=== PATIENT | male | born 1955 | race Caucasian/White ===

== ENCOUNTER 2017-07-16 20:05 | Emergency (ER) | payer OTHER ==
[~2017-07-16] VITALS: Ht 180.3 cm; Wt 158.8 kg
[~2017-07-16 20:05] MED LIST: MOTRIN800 MG PO
[2017-07-16 20:26] LABS: BASO # 0.1 10*3/uL (0.0-0.1); BASO % 0.3 % (0.0-1.0); EOS % 0.2 % (1.0-4.0); HEMATOCRIT 50.6 % (42.0-52.0); HEMOGLOBIN 16.9 g/dl (14.0-18.0); LYMPH # 1.9 10*3/uL (1.3-4.4); LYMPH % 11.6 % (27.0-41.0); MEAN CELL VOLUME 88.3 fl (80.0-94.0); MEAN CORPUSCULAR HGB 29.5 pg (27.0-31.0); MEAN CORPUSCULAR HGB CONC 33.4 g/dl (33.0-37.0); MEAN PLATELET VOLUME 10.9 fl (9.6-12.3); MONO # 0.7 10*3/uL (0.1-1.0); MONO % 4.3 % (3.0-9.0); NEUT # 13.7 10*3/uL (2.3-7.9); NEUT % 83.2 % (47.0-73.0); PLATELET COUNT AUTOMATED 217 10*3/uL (130-400); RED BLOOD COUNT 5.73 10*6/uL (4.50-5.90); RED CELL DISTRI WIDTH 13.7 % (0-14.5); WHITE BLOOD COUNT 16.4 10*3/uL (4.8-10.8)
[2017-07-16 20:36] LABS: ACT PARTIAL THROMBO TIME 21.5 SECONDS (20.8-31.5); INTERNATIONAL NORM RATIO 0.9 (2.0-3.5)
[2017-07-16 20:42] LABS: ALBUMIN 3.5 gm/dl (3.1-4.5); ALKALINE PHOSPHATASE 105 U/L (45-117); BUN 24 mg/dl (7-24); CHLORIDE 102 mmol/L (98-107); CREATININE 1.33 mg/dL (0.70-1.30); POTASSIUM 4.5 mmol/L (3.5-5.1); SGOT/AST 446 IU/L (3-35); SGPT/ALT 44 U/L (12-78); SODIUM 137 mmol/L (136-145)
== END 2017-07-16 20:50 | disposition short-term general hospital (02) ==
LOC: ED 20:05
PROVIDERS: Emergency Medicine Emergency Medical Services
DX: I21.29 ST elevation (STEMI) myocardial infarction involving other sites (principal); F17.200 Nicotine dependence, unspecified, uncomplicated; Z98.890 Other specified postprocedural states; Z88.2 Allergy status to sulfonamides

== ENCOUNTER → 2017-11-23 | Outpatient (CLI) | payer OTHER ==
[2017-11-23 12:23] LABS: BASO # 0.1 10*3/uL (0.0-0.1); EOS # 0.3 10*3/uL (0.0-0.4); EOS % 2.8 % (1.0-4.0); HEMATOCRIT 48.6 % (42.0-52.0); HEMOGLOBIN 15.8 g/dl (14.0-18.0); LYMPH % 28.9 % (27.0-41.0); MEAN CELL VOLUME 91.2 fl (80.0-94.0); MEAN CORPUSCULAR HGB 29.6 pg (27.0-31.0); MEAN CORPUSCULAR HGB CONC 32.5 g/dl (33.0-37.0); MEAN PLATELET VOLUME 10.8 fl (9.6-12.3); MONO # 0.6 10*3/uL (0.1-1.0); MONO % 5.4 % (3.0-9.0); NEUT # 6.4 10*3/uL (2.3-7.9); NEUT % 61.4 % (47.0-73.0); PLATELET COUNT AUTOMATED 250 10*3/uL (130-400); RED BLOOD COUNT 5.33 10*6/uL (4.50-5.90); RED CELL DISTRI WIDTH 13.1 % (0-14.5); WHITE BLOOD COUNT 10.4 10*3/uL (4.8-10.8)
[2017-11-23 12:47] LABS: BUN 13 mg/dl (7-24); CHLORIDE 104 mmol/L (98-107); CHOLESTEROL 126 mg/dL (<200); CREATININE 1.09 mg/dL (0.70-1.30); POTASSIUM 3.8 mmol/L (3.5-5.1); SODIUM 141 mmol/L (136-145); TRIGLYCERIDES 156 mg/dl (<150); VLDL CHOLESTEROL 31 mg/dL (6-40)
[2017-11-23 12:57] LABS: HDL CHOLESTEROL 45 mg/dl (40-60); LDL CHOLESTEROL 50 mg/dL (9-159)
== END | disposition home or self-care (01) ==
LOC: LAB 11:38
PROVIDERS: Internal Medicine
DX: I10 Essential (primary) hypertension (principal); I25.2 Old myocardial infarction; E78.00 Pure hypercholesterolemia, unspecified; E66.01 Morbid (severe) obesity due to excess calories; Z95.0 Presence of cardiac pacemaker; Z79.899 Other long term (current) drug therapy

== ENCOUNTER → 2017-11-24 | Outpatient (CLI) | payer OTHER | END | disposition home or self-care (01) | LOC: RESCLI 04:40 | DX: I10 Essential (primary) hypertension (principal); E11.65 Type 2 diabetes mellitus with hyperglycemia; E78.1 Pure hyperglyceridemia; I25.10 Atherosclerotic heart disease of native coronary artery without angina pectoris; E66.01 Morbid (severe) obesity due to excess calories; M54.42 Lumbago with sciatica, left side; G89.29 Other chronic pain; Z79.899 Other long term (current) drug therapy; Z79.82 Long term (current) use of aspirin; Z88.2 Allergy status to sulfonamides; Z68.42 Body mass index [BMI] 45.0-49.9, adult ==

== ENCOUNTER → 2018-03-02 | Outpatient (CLI) | payer OTHER ==
[2018-03-02 11:06] LABS: ALBUMIN 3.3 gm/dl (3.1-4.5); BUN 15 mg/dl (7-24); CHLORIDE 103 mmol/L (98-107); CHOLESTEROL 152 mg/dL (<200); CREATININE 1.17 mg/dL (0.70-1.30); POTASSIUM 4.1 mmol/L (3.5-5.1); SGOT/AST 9 IU/L (3-35); SGPT/ALT 16 U/L (12-78); SODIUM 140 mmol/L (136-145)
[2018-03-02 11:08] LABS: ALKALINE PHOSPHATASE 105 U/L (45-117); HDL CHOLESTEROL 50 mg/dl (40-60); LDL CHOLESTEROL 65 mg/dL (9-159); TOTAL PROTEIN 7.9 gm/dL (6.4-8.2); TRIGLYCERIDES 185 mg/dl (<150); VLDL CHOLESTEROL 37 mg/dL (6-40)
[2018-03-02 12:07] LABS: VITAMIN D, 25-HYDROXY 5.3 ng/mL (30-100)
== END | disposition home or self-care (01) ==
LOC: LAB 10:05
PROVIDERS: Internal Medicine
DX: E11.65 Type 2 diabetes mellitus with hyperglycemia (principal); E78.1 Pure hyperglyceridemia; J44.9 Chronic obstructive pulmonary disease, unspecified; R53.83 Other fatigue

== ENCOUNTER → 2018-03-09 | Outpatient (CLI) | payer OTHER ==
[~2018-03-09] MED LIST changes: +DOXYCYCLINE100 M3 PO
== END | disposition home or self-care (01) ==
LOC: RESCLI 01:52
DX: I10 Essential (primary) hypertension (principal); E11.65 Type 2 diabetes mellitus with hyperglycemia; E78.1 Pure hyperglyceridemia; F17.210 Nicotine dependence, cigarettes, uncomplicated; E66.01 Morbid (severe) obesity due to excess calories; I25.10 Atherosclerotic heart disease of native coronary artery without angina pectoris; E55.9 Vitamin D deficiency, unspecified; M54.42 Lumbago with sciatica, left side; Z79.82 Long term (current) use of aspirin; Z79.899 Other long term (current) drug therapy; Z79.84 Long term (current) use of oral hypoglycemic drugs; Z95.2 Presence of prosthetic heart valve; Z88.2 Allergy status to sulfonamides

== ENCOUNTER → 2018-06-23 | Outpatient (CLI) | payer OTHER | END | disposition home or self-care (01) | LOC: RESCLI 03:24 | DX: E11.65 Type 2 diabetes mellitus with hyperglycemia (principal); I10 Essential (primary) hypertension; E78.1 Pure hyperglyceridemia; E66.01 Morbid (severe) obesity due to excess calories; I25.10 Atherosclerotic heart disease of native coronary artery without angina pectoris; E55.9 Vitamin D deficiency, unspecified; Z72.0 Tobacco use ==

== ENCOUNTER → 2018-09-25 | Outpatient (CLI) | payer OTHER ==
[~2018-09-25] MED LIST changes: +ASPIRIN ADULT L81 M1 PO; +ATORVASTATIN CA40 M1 PO; +GLUCOPHAGE500 MG PO; +IMDUR SA30 MG PO; +LASIX40 MG PO; +LISINOPRIL5 MG PO; +METOPROLOL SUCC25 M2 PO; +PLAVIX75 M1 PO; +PROSCAR5 M1 PO; +TAMSULOSIN HCL0.4 MG PO; +ZESTRIL5 MG PO
== END | disposition home or self-care (01) ==
LOC: LAB 10:44 → EDSTATUS 09-26 15:10 → LAB 09-26 15:11
DX: E11.65 Type 2 diabetes mellitus with hyperglycemia (principal)

== ENCOUNTER 2018-10-03 12:12 | Emergency (ER) | payer OTHER ==
[~2018-10-03] VITALS: Ht 180.3 cm; Wt 161.5 kg
[~2018-10-03 12:12] MED LIST changes: -ASPIRIN ADULT L81 M1 PO; -ATORVASTATIN CA40 M1 PO; -DOXYCYCLINE100 M3 PO; -GLUCOPHAGE500 MG PO; -IMDUR SA30 MG PO; -LASIX40 MG PO; -LISINOPRIL5 MG PO; -METOPROLOL SUCC25 M2 PO; -PLAVIX75 M1 PO; -PROSCAR5 M1 PO; -TAMSULOSIN HCL0.4 MG PO; -ZESTRIL5 MG PO
[2018-10-03 13:15] LABS: BASO # 0.1 10*3/uL (0.0-0.1); BASO % 0.6 % (0.0-1.0); EOS # 0.3 10*3/uL (0.0-0.4); EOS % 3.8 % (1.0-4.0); HEMATOCRIT 40.3 % (42.0-52.0); LYMPH # 1.7 10*3/uL (1.3-4.4); LYMPH % 21.7 % (27.0-41.0); MEAN CELL VOLUME 93.1 fl (80.0-94.0); MEAN CORPUSCULAR HGB CONC 32.3 g/dl (33.0-37.0); MEAN PLATELET VOLUME 10.3 fl (9.6-12.3); MONO # 0.5 10*3/uL (0.1-1.0); MONO % 5.8 % (3.0-9.0); NEUT # 5.2 10*3/uL (2.3-7.9); NEUT % 67.7 % (47.0-73.0); PLATELET COUNT AUTOMATED 203 10*3/uL (130-400); RED BLOOD COUNT 4.33 10*6/uL (4.50-5.90); RED CELL DISTRI WIDTH 13.3 % (0-14.5); WHITE BLOOD COUNT 7.7 10*3/uL (4.8-10.8)
[2018-10-03 13:34] LABS: ALBUMIN 3.1 gm/dl (3.1-4.5); ALKALINE PHOSPHATASE 85 U/L (45-117); BUN 11 mg/dl (7-24); CHLORIDE 107 mmol/L (98-107); CREATININE 0.86 mg/dL (0.70-1.30); LIPASE 116 U/L (73-393); POTASSIUM 3.6 mmol/L (3.5-5.1); SGOT/AST 6 IU/L (3-35); SGPT/ALT 11 U/L (12-78); SODIUM 142 mmol/L (136-145); TOTAL PROTEIN 7.2 gm/dL (6.4-8.2)
[2018-10-03 13:39] LABS: BILIRUBIN NEGATIVE (NEGATIVE); BLOOD NEGATIVE (NEGATIVE); CLARITY CLEAR (CLEAR); COLOR YELLOW (YELLOW); GLUCOSE NEGATIVE (NEGATIVE); KETONE NEGATIVE (NEGATIVE); LEUKO ESTERASE NEGATIVE (NEGATIVE); NITRITE NEGATIVE (NEGATIVE); PH 5.5 (5.0-9.0); SPECIFIC GRAVITY >= 1.030 (1.005-1.030)
[2018-10-03 13:48] LABS: BACTERIA 1+; MUCOUS 3+
[2018-10-03] MEDS ORDERED: DOXYCYCLINE100 M3 PO (13:56)
== END 2018-10-03 14:06 | disposition home or self-care (01) ==
LOC: ED 12:12
PROVIDERS: Nurse Practitioner Family
DX: N43.3 Hydrocele, unspecified (principal); N49.2 Inflammatory disorders of scrotum; G89.29 Other chronic pain; E11.9 Type 2 diabetes mellitus without complications; I10 Essential (primary) hypertension; Z88.2 Allergy status to sulfonamides; Z79.899 Other long term (current) drug therapy

== ENCOUNTER → 2018-10-03 | Outpatient (CLI) | payer OTHER | END | disposition home or self-care (01) | LOC: RESCLI 00:32 | DX: J44.9 Chronic obstructive pulmonary disease, unspecified (principal); I10 Essential (primary) hypertension; I25.2 Old myocardial infarction; M54.42 Lumbago with sciatica, left side; G89.29 Other chronic pain; E78.00 Pure hypercholesterolemia, unspecified; E66.01 Morbid (severe) obesity due to excess calories; E11.65 Type 2 diabetes mellitus with hyperglycemia; E78.1 Pure hyperglyceridemia; I25.10 Atherosclerotic heart disease of native coronary artery without angina pectoris; Z68.42 Body mass index [BMI] 45.0-49.9, adult; E55.9 Vitamin D deficiency, unspecified; N50.89 Other specified disorders of the male genital organs; Z95.0 Presence of cardiac pacemaker; Z79.899 Other long term (current) drug therapy ==

== ENCOUNTER → 2018-10-10 | Outpatient (CLI) | payer OTHER ==
[~2018-10-10] MED LIST changes: +ASPIRIN ADULT L81 M1 PO; +ATORVASTATIN CA40 M1 PO; +DOXYCYCLINE100 M3 PO; +GLUCOPHAGE500 MG PO; +IMDUR SA30 MG PO; +LASIX40 MG PO; +LISINOPRIL5 MG PO; +METOPROLOL SUCC25 M2 PO; +PLAVIX75 M1 PO; +PROSCAR5 M1 PO; +TAMSULOSIN HCL0.4 MG PO; +ZESTRIL5 MG PO
== END | disposition home or self-care (01) ==
LOC: LAB 12:20
DX: D40.0 Neoplasm of uncertain behavior of prostate (principal)

== ENCOUNTER 2018-10-27 01:12 | Inpatient (IN) | payer OTHER ==
[2018-10-27] VITALS (7 sets, daily range): BP systolic 125–170; BP diastolic 57–89
[~2018-10-27] VITALS: Ht 180.3 cm; Wt 154.7 kg
--- NOTE | ~2018-10-27 | CON ---
[place], [place] REPORT OF CONSULTATION [id number] #: [id number] ROOM: 403 DOCTOR: AMY GODWIN DPM BIRTHDATE: [birth year] DOS: 10/27/2018 SUBJECTIVE: This patient is seen today for consult of elongated, thickened toenails. The patient is diabetic. Denies any history of foot ulcers or infections. The patient states he does get a lot of swelling in both lower legs and they are starting him on a diuretic at this time. PAST MEDICAL HISTORY: Positive for cellulitis of the scrotum, CHF, chronic back pain, type 2 diabetes, COPD, obstructive sleep apnea, history of PR, hyperlipidemia, hypertension, morbid obesity. ALLERGIES: THE PATIENT HAS ALLERGIES TO SULFA. CURRENT MEDICATIONS: Include Toprol, Zestril, Imdur, Proscar, Plavix, 81 mg aspirin, Lipitor, Flomax, Lasix, Lovenox, Restoril, Zofran, morphine, [place], Zosyn, Toradol. OBJECTIVE: Upon lower extremity physical examination, there is 1-2+ pitting edema noted in both lower extremities with negative Homans sign. Diminished hair growth is seen. Skin temperature is cool to toes. CFT is 2 seconds to all digits. Pedal pulses are mildly decreased bilaterally. Sensation appears grossly intact and symmetrical. There is dry skin noted throughout the bottom of both feet, but no ulcerations or open areas. No cracks, fissures or rashes. Nails 1 through 5 bilaterally are elongated, thick, brittle, dystrophic with subungual debris present. No macerations in the web spaces. ASSESSMENT: Venous insufficiency with edema bilaterally, onychomycosis 1 through 5 bilaterally, diabetes with mild vascular disease. PLAN: Consult is performed. Instructed on proper diabetic foot care. He is on a diuretic for his edema. Manual debridement of mycotic nails 1 through 5 bilaterally in length and thickness to level the nail bed to reduce such infection. Discussed with the patient about proper diabetic foot care. He could follow up in 9 weeks as an outpatient in the office or sooner if he has any concerns. Thank you for the opportunity to take part in care of this patient. AMY CHRISTOPHER GODWIN CM:CONSTR:REPORT OF CONSULTATION 1221 10/28/18 0225 interface
--- NOTE | ~2018-10-27 | EKG ---
[place], [place] ELECTROCARDIOGRAM REPORT NAME: ELI BYRNES JR UNIT #: [id number] ROOM: 403 DOCTOR: CHEMO DRAFT REPORT BIRTHDATE: [birth year] [facility] Test Date: 2018-10-27 Test Time: 01:21:15 Pat Name: ELI BYRNES Department: Room: 403 Gender: M Occupational Therapy Asst: : 1955 Requested By: DALE TAPIA Order Number: [id number] Reading MD: Oz Yu MD Measurements Intervals [place] Rate: 67 P: 57 HI: 163 QRS: 38 QRSD: 121 T: 7 QT: 455 QTc: 481 Interpretive Statements Sinus rhythm Left bundle branch block Baseline wander in lead(s) I,II,III,aVR,aVL,aVF,V1,V2,V3,V4,V5,V6 Electronically Signed On 10-29-2018 7:44:29 PDT by Oz Yu MD CM:EKGRPT:ELECTROCARDIOGRAM REPORT [id number] 0744 DALE TAPIA MD EPIPHANY DRAFT REPORT DALE TAPIA MD
--- NOTE | ~2018-10-27 | EKG ---
[place], [place] ELECTROCARDIOGRAM REPORT NAME: ELI BYRNES JR UNIT #: [id number] ROOM: 403 DOCTOR: CHEMO DRAFT REPORT BIRTHDATE: [birth year] [facility] Test Date: 2018-10-27 Test Time: 06:52:17 Pat Name: ELI BYRNES Department: Room: 403 Gender: M Candy Decorator: Yumiko Lam : 1955 Requested By: DALE TAPIA Order Number: [id number] Reading MD: Oz Yu MD Measurements Intervals [place] Rate: 82 P: 53 RI: 181 QRS: 14 QRSD: 97 T: -37 QT: 373 QTc: 436 Interpretive Statements Sinus rhythm Inferior infarct, age indeterminate No previous ECG available for comparison Electronically Signed On 10-29-2018 7:44:45 PDT by Oz Yu MD CM:EKGRPT:ELECTROCARDIOGRAM REPORT [id number] 0744 DALE TAPIA MD EPIPHANY DRAFT REPORT DALE TAPIA MD
--- NOTE | ~2018-10-27 | EKG ---
[place], [place] ELECTROCARDIOGRAM REPORT NAME: ELI BYRNES JR UNIT #: [id number] ROOM: 403 DOCTOR: EPIPHANY DRAFT REPORT BIRTHDATE: [birth year] [facility] Test Date: 2018-10-27 Test Time: 03:58:47 Pat Name: ELI BYRNES Department: Room: 403 Gender: M School Inspector: Nicole Dupree : 1955 Requested By: DALE TAPIA Order Number: [id number] Reading MD: Oz Yu MD Measurements Intervals [place] Rate: 92 P: 60 ID: 160 QRS: 24 QRSD: 102 T: -53 QT: 378 QTc: 468 Interpretive Statements Sinus rhythm Inferior infarct, age indeterminate Baseline wander in lead(s) II,III,aVF Electronically Signed On 10-29-2018 7:44:39 PDT by Oz Yu MD CM:EKGRPT:ELECTROCARDIOGRAM REPORT [id number] 0744 DALE TAPIA MD EPIPHANY DRAFT REPORT DALE TAPIA MD
[~2018-10-27 01:12] MED LIST changes: -ASPIRIN ADULT L81 M1 PO; -ATORVASTATIN CA40 M1 PO; -GLUCOPHAGE500 MG PO; -IMDUR SA30 MG PO; -LASIX40 MG PO; -LISINOPRIL5 MG PO; -METOPROLOL SUCC25 M2 PO; -PLAVIX75 M1 PO; -PROSCAR5 M1 PO; -TAMSULOSIN HCL0.4 MG PO; -ZESTRIL5 MG PO
[2018-10-27 01:39] LABS: BASO # 0.1 10*3/uL (0.0-0.1); BASO % 0.8 % (0.0-1.0); EOS # 0.3 10*3/uL (0.0-0.4); EOS % 3.2 % (1.0-4.0); HEMATOCRIT 39.5 % (42.0-52.0); HEMOGLOBIN 12.6 g/dl (14.0-18.0); LYMPH # 2.3 10*3/uL (1.3-4.4); LYMPH % 22.2 % (27.0-41.0); MEAN CELL VOLUME 92.9 fl (80.0-94.0); MEAN CORPUSCULAR HGB 29.6 pg (27.0-31.0); MEAN CORPUSCULAR HGB CONC 31.9 g/dl (33.0-37.0); MEAN PLATELET VOLUME 10.6 fl (9.6-12.3); MONO # 0.7 10*3/uL (0.1-1.0); MONO % 6.9 % (3.0-9.0); NEUT % 66.6 % (47.0-73.0); PLATELET COUNT AUTOMATED 202 10*3/uL (130-400); RED BLOOD COUNT 4.25 10*6/uL (4.50-5.90); RED CELL DISTRI WIDTH 13.2 % (0-14.5); WHITE BLOOD COUNT 10.5 10*3/uL (4.8-10.8)
[2018-10-27 01:52] LABS: ACT PARTIAL THROMBO TIME 25.7 SECONDS (20.0-32.1)
[2018-10-27] MEDS ORDERED: LISINOPRIL5 MG PO (01:53)
[2018-10-27] MEDS ORDERED: GLUCOPHAGE500 MG PO (01:53)
[2018-10-27] MEDS ORDERED: ATORVASTATIN CA40 M1 PO (01:53)
[2018-10-27] MEDS ORDERED: METOPROLOL SUCC25 M2 PO (01:53)
[2018-10-27] MEDS ORDERED: PROSCAR5 M1 PO (01:54)
[2018-10-27] MEDS ORDERED: IMDUR SA30 MG PO (01:54)
[2018-10-27] MEDS ORDERED: TAMSULOSIN HCL0.4 MG PO (01:54)
[2018-10-27] MEDS ORDERED: ASPIRIN ADULT L81 M1 PO (01:54)
--- NOTE | 2018-10-27 01:55 | NUR ---
PT POOR HISTORIAN ON MEDICATION AND DOSAGES.
[2018-10-27 01:58] LABS: ALBUMIN 3.3 gm/dl (3.1-4.5); ALKALINE PHOSPHATASE 88 U/L (45-117); BUN 12 mg/dl (7-24); CHLORIDE 105 mmol/L (98-107); CREATININE 0.93 mg/dL (0.70-1.30); POTASSIUM 3.9 mmol/L (3.5-5.1); SGOT/AST 10 IU/L (3-35); SGPT/ALT 12 U/L (12-78); SODIUM 141 mmol/L (136-145); TOTAL PROTEIN 7.4 gm/dL (6.4-8.2); TROPONIN I 0.021 ng/ml (<0.045)
--- NOTE | 2018-10-27 06:30 | NUR ---
A 63, admitted to 4E, under the services of ADARSH Kim DO with a diagnosis of ABDOMINAL PAIN. Chief complaint is ABDOMINAL PAIN. Patient arrived via wheel chair from ER. Monitor applied. Initial assessment completed. Vital signs taken and recorded. ADARSH KIM DO notified of admission to the unit. Orders received. See assessment for past medical history, medications and allergies. Patient and/or family oriented to unit. [address] visitation policy reviewed. Clothing/patient valuable form completed. PT IS AAOX3. BILAT LOWER EXT EDEMA NOTED WELL EDEMA NOTED TO THE LEFT HAND AND FOREARM. TESTICLES ARE GROTESQUELY EDEMATOUS, SKIN IS TAUGHT. PT REPORTS DYSURIA WELL DIFFICULTY MAKING IT TO THE BATHROOM IN TIME STATING THAT HE HAS BEEN URINATING IN BUCKETS AT HOME. PT ALSO REPORTS DIFFICULTY AMBULATING D/T TESTICULAR SWELLING. PT REPORTS SEEING AND UNKNOWN PHYSICIAN OUT OF [place] REGARDING THIS ISSUE. MIRIAN MIRANDA
[2018-10-27 07:32] LABS: BASO # 0.1 10*3/uL (0.0-0.1); BASO % 0.7 % (0.0-1.0); EOS # 0.1 10*3/uL (0.0-0.4); EOS % 0.7 % (1.0-4.0); HEMATOCRIT 38.3 % (42.0-52.0); LYMPH # 1.3 10*3/uL (1.3-4.4); LYMPH % 16.9 % (27.0-41.0); MEAN CELL VOLUME 93.6 fl (80.0-94.0); MEAN CORPUSCULAR HGB 29.3 pg (27.0-31.0); MEAN CORPUSCULAR HGB CONC 31.3 g/dl (33.0-37.0); MEAN PLATELET VOLUME 10.4 fl (9.6-12.3); MONO # 0.3 10*3/uL (0.1-1.0); MONO % 4.2 % (3.0-9.0); NEUT # 5.9 10*3/uL (2.3-7.9); NEUT % 77.1 % (47.0-73.0); PLATELET COUNT AUTOMATED 198 10*3/uL (130-400); RED BLOOD COUNT 4.09 10*6/uL (4.50-5.90); RED CELL DISTRI WIDTH 13.2 % (0-14.5); WHITE BLOOD COUNT 7.6 10*3/uL (4.8-10.8)
[2018-10-27 08:01] LABS: ALKALINE PHOSPHATASE 80 U/L (45-117); BUN 13 mg/dl (7-24); CHLORIDE 106 mmol/L (98-107); CHOLESTEROL 106 mg/dL (<200); CREATININE 0.82 mg/dL (0.70-1.30); FREE T4 1.13 ng/dl (0.76-1.46); HDL CHOLESTEROL 46 mg/dl (40-60); LDL CHOLESTEROL 41 mg/dL (9-159); PHOSPHOROUS 4.1 mg/dL (2.5-4.9); POTASSIUM 4.3 mmol/L (3.5-5.1); SGOT/AST 9 IU/L (3-35); SGPT/ALT 12 U/L (12-78); SODIUM 142 mmol/L (136-145); TOTAL PROTEIN 6.7 gm/dL (6.4-8.2); TRIGLYCERIDES 95 mg/dl (<150); VLDL CHOLESTEROL 19 mg/dL (6-40)
[2018-10-27 08:06] LABS: THYROID STIM HORMONE (HS) 0.969 uIU/ml (0.358-4.75)
[2018-10-27 08:35] LABS: VITAMIN D, 25-HYDROXY 52.6 ng/mL (30-100)
--- NOTE | 2018-10-27 08:38 | NUR ---
PHYSICAL THERAPY Nursing screen received and chart reviewed. Physical therapy order received. Thank you. Maureen Herrera,PT,DPT.
--- NOTE | 2018-10-27 09:00 | NUR ---
Community Health Education Coordinator in to talk to patient. Patient states lives at home with alone. There are few steps in the home. Physician: resident clinic Pharmacy: [facility] health services: none Patient's level of ADLs: INDEPENDENT Patient has working utilities: all working DME: cpap Follow-up physician's appointment after d/c: will be made by hospitalist nurse director upon discharge Does patient want to access PORTAL?: no Discharge plan discussed with patient, he lives at home, is independent in adls and ambulation has a cpap at home, he states he will be returning home when able and denies any home needs. MELL GUSTAFSON
--- NOTE | 2018-10-27 09:02 | NUR ---
I NOTIFIED DR RILEY OF NEW CONSULT ORDER AND HE WILL BE IN THIS AM TO SEE PT.
[2018-10-27] MEDS ORDERED: ZESTRIL5 MG PO (10:36)
[2018-10-27] MEDS ORDERED: PLAVIX75 M1 PO (10:37)
--- NOTE | 2018-10-27 11:00 | NUR ---
DR ROCHA WHO IS THE RESIDENT WITH DR RASMUSSEN NOTIFIED OF NEW CONSULT ORDER.
[2018-10-27 11:13] LABS: BILIRUBIN NEGATIVE (NEGATIVE); BLOOD NEGATIVE (NEGATIVE); CLARITY SL CLOUDY (CLEAR); COLOR YELLOW (YELLOW); GLUCOSE NEGATIVE (NEGATIVE); KETONE NEGATIVE (NEGATIVE); LEUKO ESTERASE NEGATIVE (NEGATIVE); NITRITE NEGATIVE (NEGATIVE)
--- NOTE | 2018-10-27 11:38 | NUR ---
PHYSICAL THERAPY Physical therapy evaluation attempted. Patient refusing at this time, stating "I can't do anything". PT will attempt evaluation at a later time/date. Thank you Mary Lyons, SPT Maureen Herrera,PT,DPT.
--- NOTE | 2018-10-27 12:00 | NUR ---
DR RILEY IN TO SEE PT.
--- NOTE | 2018-10-27 15:30 | NUR ---
ASSUMED CARE FOR THIS PT AT THIS TIME. ALL NEEDS MET. NO C/O VOICED. CALL LIGHT IN REACH.
--- NOTE | 2018-10-27 16:05 | NUR ---
Nursing screen received and chart reviewed. Patient admitted with right quadrant pain and scrotal edema. If patient should have a decline in functional mobility or ADLs then refer to OT. Thank you. Ирина Araiza OTR/L
[2018-10-28] VITALS: BP 141/74
--- NOTE | 2018-10-28 00:10 | NUR ---
MEDICATED WITH PO DULCOLAX ORDERED PER PT REQUEST FOR C/O CONSTIPATION. BSC PROVIDED.
--- NOTE | 2018-10-28 04:00 | NUR ---
Patient resting quietly with no c/o discomfort. Respirations easy and regular. Vital signs stable. No overt distress. CARLOS MANUEL RODRIGUEZ
--- NOTE | 2018-10-28 04:35 | NUR ---
24 HR chart check completed.
[2018-10-28 07:59] LABS: BASO # 0.1 10*3/uL (0.0-0.1); BASO % 1.1 % (0.0-1.0); EOS # 0.3 10*3/uL (0.0-0.4); EOS % 5.1 % (1.0-4.0); HEMATOCRIT 42.7 % (42.0-52.0); HEMOGLOBIN 13.2 g/dl (14.0-18.0); LYMPH # 1.3 10*3/uL (1.3-4.4); LYMPH % 20.7 % (27.0-41.0); MEAN CELL VOLUME 94.1 fl (80.0-94.0); MEAN CORPUSCULAR HGB 29.1 pg (27.0-31.0); MEAN CORPUSCULAR HGB CONC 30.9 g/dl (33.0-37.0); MEAN PLATELET VOLUME 10.4 fl (9.6-12.3); MONO # 0.4 10*3/uL (0.1-1.0); MONO % 6.9 % (3.0-9.0); NEUT # 4.1 10*3/uL (2.3-7.9); NEUT % 65.9 % (47.0-73.0); PLATELET COUNT AUTOMATED 191 10*3/uL (130-400); RED BLOOD COUNT 4.54 10*6/uL (4.50-5.90); RED CELL DISTRI WIDTH 13.4 % (0-14.5); WHITE BLOOD COUNT 6.3 10*3/uL (4.8-10.8)
[2018-10-28 08:00] VITALS: BP 161/91
[2018-10-28 08:11] LABS: BUN 12 mg/dl (7-24); CHLORIDE 103 mmol/L (98-107); CREATININE 0.81 mg/dL (0.70-1.30); SODIUM 141 mmol/L (136-145)
--- NOTE | 2018-10-28 08:45 | NUR ---
Awke and alert. Dr. Cote in to evaulate. Odiferious. Discussed personal hygiene and need to have bath this AM. Pt. is agreeable. dark brown matter noted to bottom of feet. Excoriation under axilla also noted. Taking breakfast well.
--- NOTE | 2018-10-28 10:30 | NUR ---
PHYSICAL THERAPY PT EVAL COMPLETED ON LEVEL 4: FULL EVALUATION TO FOLLOW. RECOMMEND PT WHILE HERE TO ADDRESS DECREASED STRENGTH, ENDURANCE, BALANCE AND THUS FUNCTIONAL MOBILITY. PT EVAL IS MODERATE COMPLEXITY: [id number]. D/C REC AT THIS TIME WOULD BE SHORT TERM SNF IF HE MEETS CRITERIA AND IF NOT HOME WITH HOME HEALTH PT. THANK YOU FOR REFERRAL RL WILDER PT
[2018-10-28 12:00] VITALS: BP 127/61
[2018-10-28 16:00] VITALS: BP 134/72
[2018-10-28 20:00] VITALS: BP 137/73
--- NOTE | 2018-10-28 20:00 | NUR ---
Patient resting quietly with no c/o discomfort. Respirations easy and regular. Vital signs stable. No overt distress. CARLOS MANUEL RODRIGUEZ 24 HR chart check completed.
[2018-10-29] VITALS: BP 125/72
--- NOTE | 2018-10-29 | NUR ---
Patient resting quietly with no c/o discomfort. Respirations easy and regular. Vital signs stable. No overt distress. CARLOS MANUEL RODRIGUEZ
--- NOTE | 2018-10-29 04:00 | NUR ---
Patient resting quietly with no c/o discomfort. Respirations easy and regular. Vital signs stable. No overt distress. CARLOS MANUEL RODRIGUEZ
[2018-10-29 08:00] VITALS: BP 138/81
[2018-10-29 09:11] LABS: BUN 12 mg/dl (7-24); CHLORIDE 100 mmol/L (98-107); CREATININE 0.91 mg/dL (0.70-1.30); POTASSIUM 3.9 mmol/L (3.5-5.1); SODIUM 141 mmol/L (136-145)
[2018-10-29 12:00] VITALS: BP 118/66
[2018-10-29 16:00] VITALS: BP 125/78
[2018-10-29 20:00] VITALS: BP 136/70
--- NOTE | 2018-10-29 20:31 | NUR ---
24 HR chart check completed. Patient resting quietly with no c/o discomfort. Respirations easy and regular. Vital signs stable. No overt distress. CARLOS MANUEL RODRIGUEZ
[2018-10-30] VITALS: BP 133/65
--- NOTE | 2018-10-30 | NUR ---
Patient resting quietly with no c/o discomfort. Respirations easy and regular. Vital signs stable. No overt distress. CARLOS MANUEL RODRIGUEZ
--- NOTE | 2018-10-30 04:00 | NUR ---
Patient resting quietly with no c/o discomfort. Respirations easy and regular. Vital signs stable. No overt distress. CARLOS MANUEL RODRIGUEZ
[2018-10-30 07:00] LABS: BASO # 0.1 10*3/uL (0.0-0.1); BASO % 0.9 % (0.0-1.0); EOS # 0.4 10*3/uL (0.0-0.4); EOS % 5.6 % (1.0-4.0); HEMATOCRIT 39.4 % (42.0-52.0); HEMOGLOBIN 12.4 g/dl (14.0-18.0); LYMPH # 1.9 10*3/uL (1.3-4.4); MEAN CELL VOLUME 93.6 fl (80.0-94.0); MEAN CORPUSCULAR HGB 29.5 pg (27.0-31.0); MEAN CORPUSCULAR HGB CONC 31.5 g/dl (33.0-37.0); MEAN PLATELET VOLUME 10.7 fl (9.6-12.3); MONO # 0.5 10*3/uL (0.1-1.0); MONO % 7.8 % (3.0-9.0); NEUT % 57.6 % (47.0-73.0); PLATELET COUNT AUTOMATED 203 10*3/uL (130-400); RED BLOOD COUNT 4.21 10*6/uL (4.50-5.90); RED CELL DISTRI WIDTH 13.2 % (0-14.5); WHITE BLOOD COUNT 6.9 10*3/uL (4.8-10.8)
[2018-10-30 07:12] LABS: BUN 11 mg/dl (7-24); CHLORIDE 100 mmol/L (98-107); CREATININE 0.79 mg/dL (0.70-1.30); POTASSIUM 3.6 mmol/L (3.5-5.1); SODIUM 141 mmol/L (136-145)
[2018-10-30 08:00] VITALS: BP 122/84
--- NOTE | 2018-10-30 09:00 | NUR ---
case management visits with patient, he states he will be returning home when medically stable and denies any home needs
--- NOTE | 2018-10-30 09:45 | NUR ---
PT TRANSPORTED VIA BED TO OR WITH DR RILEY FOR EGD.
[2018-10-30 12:00] VITALS: BP 130/71
--- NOTE | 2018-10-30 12:28 | NUR ---
PT WAS ASSESSED FOR HOME OXYGEN. PT DID NOT QUALIFY PT AT REST 95% RA, HR 75, B/P 130/71 PT AMBULATED SPO2 91-93% RA PT AT REST SPO2 94% RA, HR 71, RR 18, B/P 148/70 PT WAS UNABLE TO WALK FAR. HE WAS COMPLAINING OF ALOT OF BACK PAIN. RN NOTIFIED AND NOTIFIED
--- NOTE | 2018-10-30 13:35 | NUR ---
PHYSICAL THERAPY Patient was sound asleep this pm when approached several times for therapy visit. Will continue per POC as able. Satnam Rush, [employer] ASSEMBLER
--- NOTE | 2018-10-30 15:40 | NUR ---
PHYSICAL THERAPY CO-SIGN I approve of the Physical Therapy notes written above. NELY SILVA PT,DPT
[2018-10-30 16:00] VITALS: BP 105/50
[2018-10-30] MEDS ORDERED: TAMSULOSIN HCL0.4 MG PO (16:50)
[2018-10-30] MEDS ORDERED: PROSCAR5 M1 PO (16:50)
[2018-10-30] MEDS ORDERED: LASIX40 MG PO (16:53)
--- NOTE | 2018-10-30 18:00 | NUR ---
Discharge instructions reviewed with patient/family. Patient receptive and verbalizes understanding. Follow-up care arranged. Written instructions given to patient/family. HARESH ALEXANDRE
== END 2018-10-30 18:03 | disposition home or self-care (01) | DRG 445 ==
LOC: ED 01:12 → 4E 05:12 → EDHOLD 05:12 → 4E 05:38
PROVIDERS: Emergency Medicine Emergency Medical Services; Internal Medicine; Student in an Organized Health Care Education/Training Program; ADMIT Internal Medicine
PROC: 0HBRXZZ Excision of Toe Nail, External Approach (ICD-10-PCS; principal; 2018-10-27)
PROC: 0HBRXZZ Excision of Toe Nail, External Approach (ICD-10-PCS; 2018-10-27)
PROC: 0HBRXZZ Excision of Toe Nail, External Approach (ICD-10-PCS; 2018-10-27)
PROC: 0HBRXZZ Excision of Toe Nail, External Approach (ICD-10-PCS; 2018-10-27)
PROC: 0HBRXZZ Excision of Toe Nail, External Approach (ICD-10-PCS; 2018-10-27)
PROC: 0HBRXZZ Excision of Toe Nail, External Approach (ICD-10-PCS; 2018-10-27)
PROC: 0HBRXZZ Excision of Toe Nail, External Approach (ICD-10-PCS; 2018-10-27)
PROC: 0HBRXZZ Excision of Toe Nail, External Approach (ICD-10-PCS; 2018-10-27)
PROC: 0HBRXZZ Excision of Toe Nail, External Approach (ICD-10-PCS; 2018-10-27)
PROC: 0HBRXZZ Excision of Toe Nail, External Approach (ICD-10-PCS; 2018-10-27)
DX: K80.62 Calculus of gallbladder and bile duct with acute cholecystitis without obstruction (principal); E44.1 Mild protein-calorie malnutrition; J96.11 Chronic respiratory failure with hypoxia; Z68.43 Body mass index [BMI] 50.0-59.9, adult; E66.01 Morbid (severe) obesity due to excess calories; E50.9 Vitamin A deficiency, unspecified; G89.29 Other chronic pain; M54.9 Dorsalgia, unspecified; J44.9 Chronic obstructive pulmonary disease, unspecified; G47.33 Obstructive sleep apnea (adult) (pediatric); I50.9 Heart failure, unspecified; I11.0 Hypertensive heart disease with heart failure; E78.5 Hyperlipidemia, unspecified; D64.9 Anemia, unspecified; E83.41 Hypermagnesemia; E11.69 Type 2 diabetes mellitus with other specified complication; N40.0 Benign prostatic hyperplasia without lower urinary tract symptoms; B35.1 Tinea unguium; I87.2 Venous insufficiency (chronic) (peripheral); Z66 Do not resuscitate; Z51.5 Encounter for palliative care; Z88.2 Allergy status to sulfonamides; Z79.899 Other long term (current) drug therapy; Z79.84 Long term (current) use of oral hypoglycemic drugs; Z79.82 Long term (current) use of aspirin; I25.2 Old myocardial infarction; Z95.0 Presence of cardiac pacemaker; Z95.5 Presence of coronary angioplasty implant and graft; Z87.891 Personal history of nicotine dependence; Z82.3 Family history of stroke; Z82.49 Family history of ischemic heart disease and other diseases of the circulatory system

== ENCOUNTER → 2018-12-21 | Outpatient (CLI) | payer OTHER ==
[~2018-12-21] MED LIST changes: +ASPIRIN ADULT L81 M1 PO; +ATORVASTATIN CA40 M1 PO; +GLUCOPHAGE500 MG PO; +IMDUR SA30 MG PO; +LASIX40 MG PO; +LISINOPRIL5 MG PO; +METOPROLOL SUCC25 M2 PO; +PLAVIX75 M1 PO; +PROSCAR5 M1 PO; +TAMSULOSIN HCL0.4 MG PO; +ZESTRIL5 MG PO
== END | disposition home or self-care (01) ==
LOC: RESCLI 00:40
DX: Z23 Encounter for immunization (principal); E55.9 Vitamin D deficiency, unspecified; I25.10 Atherosclerotic heart disease of native coronary artery without angina pectoris; J44.9 Chronic obstructive pulmonary disease, unspecified; E78.00 Pure hypercholesterolemia, unspecified; E11.65 Type 2 diabetes mellitus with hyperglycemia; I11.0 Hypertensive heart disease with heart failure; I50.9 Heart failure, unspecified

== ENCOUNTER → 2019-01-24 | Outpatient (CLI) | payer OTHER ==
[2019-01-24 14:28] LABS: BASO # 0.1 10*3/uL (0.0-0.1); BASO % 0.8 % (0.0-1.0); EOS # 0.3 10*3/uL (0.0-0.4); EOS % 3.3 % (1.0-4.0); HEMATOCRIT 46.9 % (42.0-52.0); LYMPH # 2.8 10*3/uL (1.3-4.4); LYMPH % 30.8 % (27.0-41.0); MEAN CELL VOLUME 90.4 fl (80.0-94.0); MEAN CORPUSCULAR HGB 28.9 pg (27.0-31.0); MEAN PLATELET VOLUME 10.5 fl (9.6-12.3); MONO # 0.5 10*3/uL (0.1-1.0); MONO % 5.4 % (3.0-9.0); NEUT # 5.4 10*3/uL (2.3-7.9); NEUT % 59.4 % (47.0-73.0); PLATELET COUNT AUTOMATED 203 10*3/uL (130-400); RED BLOOD COUNT 5.19 10*6/uL (4.50-5.90); RED CELL DISTRI WIDTH 13.6 % (0-14.5)
[2019-01-24 14:42] LABS: ALBUMIN 3.3 gm/dl (3.1-4.5); ALKALINE PHOSPHATASE 105 U/L (45-117); BUN 17 mg/dl (7-24); CHLORIDE 101 mmol/L (98-107); CHOLESTEROL 163 mg/dL (<200); CREATININE 1.15 mg/dL (0.70-1.30); HDL CHOLESTEROL 53 mg/dl (40-60); LDL CHOLESTEROL 76 mg/dL (9-159); POTASSIUM 4.1 mmol/L (3.5-5.1); SGOT/AST 21 IU/L (3-35); SGPT/ALT 24 U/L (12-78); SODIUM 139 mmol/L (136-145); TRIGLYCERIDES 171 mg/dl (<150); VLDL CHOLESTEROL 34 mg/dL (6-40)
== END | disposition home or self-care (01) ==
LOC: RESCLI 01:47
PROVIDERS: Internal Medicine
DX: I25.10 Atherosclerotic heart disease of native coronary artery without angina pectoris (principal); E55.9 Vitamin D deficiency, unspecified; I11.0 Hypertensive heart disease with heart failure; I50.9 Heart failure, unspecified; J44.9 Chronic obstructive pulmonary disease, unspecified; E78.00 Pure hypercholesterolemia, unspecified; E11.65 Type 2 diabetes mellitus with hyperglycemia; Z79.899 Other long term (current) drug therapy; Z88.2 Allergy status to sulfonamides

== ENCOUNTER → 2019-02-28 | Outpatient (CLI) | payer OTHER | END | disposition home or self-care (01) | LOC: RESCLI 00:35 | DX: J44.9 Chronic obstructive pulmonary disease, unspecified (principal); E55.9 Vitamin D deficiency, unspecified; I11.0 Hypertensive heart disease with heart failure; E11.65 Type 2 diabetes mellitus with hyperglycemia; I50.9 Heart failure, unspecified; I25.10 Atherosclerotic heart disease of native coronary artery without angina pectoris; E78.00 Pure hypercholesterolemia, unspecified; Z79.899 Other long term (current) drug therapy; Z88.8 Allergy status to other drugs, medicaments and biological substances ==

== ENCOUNTER → 2019-10-08 | Outpatient (CLI) | payer OTHER | END | disposition home or self-care (01) | LOC: RESCLI 05:09 | DX: I11.0 Hypertensive heart disease with heart failure (principal); I50.9 Heart failure, unspecified; E11.65 Type 2 diabetes mellitus with hyperglycemia; I25.10 Atherosclerotic heart disease of native coronary artery without angina pectoris; E78.00 Pure hypercholesterolemia, unspecified; E55.9 Vitamin D deficiency, unspecified; J44.9 Chronic obstructive pulmonary disease, unspecified; N40.0 Benign prostatic hyperplasia without lower urinary tract symptoms; Z79.84 Long term (current) use of oral hypoglycemic drugs; Z79.899 Other long term (current) drug therapy; Z95.828 Presence of other vascular implants and grafts; Z95.0 Presence of cardiac pacemaker ==

== ENCOUNTER → 2019-10-30 | Outpatient (CLI) | payer OTHER ==
[2019-10-30 15:56] LABS: BUN 24 mg/dl (7-24); CHLORIDE 105 mmol/L (98-107); CREATININE 1.21 mg/dL (0.70-1.30); POTASSIUM 4.2 mmol/L (3.5-5.1); SODIUM 141 mmol/L (136-145)
== END | disposition home or self-care (01) ==
LOC: LAB 15:12
PROVIDERS: ATTEND Student in an Organized Health Care Education/Training Program
DX: E11.65 Type 2 diabetes mellitus with hyperglycemia (principal); I10 Essential (primary) hypertension

== ENCOUNTER → 2019-12-10 | Outpatient (CLI) | payer OTHER ==
[~2019-12-10] MED LIST changes: +PIOGLITAZONE HC30 MG PO; +SYMB160 INH
--- NOTE | 2019-12-10 11:06 | NUR ---
INFORMED SIGNED CONSENT OBTAINED FOR LEXISCAN STRESS TEST WITH DR SALAZAR. RESTING EKG RBBB HR 70 BP 130/80. PULSE OX 99% LUNGS CLEARLY DIMINISHED. PT COMPLETED ONE MINUTE OF A LEXISCAN PROTOCOL WITH PT RECEIVING LEXISCAN 0.4MG IV OVER 10 SECONDS. PT HAD NO ARRHYTHMIAS OR ST CHANGES. PT HAD AN ODD FEELING WITH INJECTION, RESOVLED IN RECOVERY. PT IN STABLE CONDITION AWAITING NUCLEAR IMAGES.
== END | disposition home or self-care (01) ==
LOC: CARD 00:27
PROVIDERS: ATTEND Internal Medicine Cardiovascular Disease
DX: I51.7 Cardiomegaly (principal); I44.2 Atrioventricular block, complete

== ENCOUNTER → 2020-01-21 | Outpatient (CLI) | payer OTHER | END | disposition home or self-care (01) | LOC: RESCLI 00:47 | PROVIDERS: ATTEND Internal Medicine Nephrology | DX: I11.0 Hypertensive heart disease with heart failure (principal); I50.9 Heart failure, unspecified; E11.65 Type 2 diabetes mellitus with hyperglycemia; I25.10 Atherosclerotic heart disease of native coronary artery without angina pectoris; E78.00 Pure hypercholesterolemia, unspecified; N40.0 Benign prostatic hyperplasia without lower urinary tract symptoms; J44.9 Chronic obstructive pulmonary disease, unspecified; E55.9 Vitamin D deficiency, unspecified; K59.00 Constipation, unspecified; L30.4 Erythema intertrigo; Z79.899 Other long term (current) drug therapy; Z95.828 Presence of other vascular implants and grafts; Z88.8 Allergy status to other drugs, medicaments and biological substances; Z23 Encounter for immunization ==

== ENCOUNTER → 2020-05-05 | Outpatient (CLI) | payer OTHER | END | disposition home or self-care (01) | LOC: RESCLI 00:25 | PROVIDERS: ATTEND Internal Medicine Nephrology | DX: I11.0 Hypertensive heart disease with heart failure (principal); I50.9 Heart failure, unspecified; I25.10 Atherosclerotic heart disease of native coronary artery without angina pectoris; E78.00 Pure hypercholesterolemia, unspecified; N40.0 Benign prostatic hyperplasia without lower urinary tract symptoms; J44.9 Chronic obstructive pulmonary disease, unspecified; E55.9 Vitamin D deficiency, unspecified; E11.65 Type 2 diabetes mellitus with hyperglycemia; K59.00 Constipation, unspecified; R26.9 Unspecified abnormalities of gait and mobility; E66.01 Morbid (severe) obesity due to excess calories; Z79.82 Long term (current) use of aspirin; Z79.899 Other long term (current) drug therapy; Z79.84 Long term (current) use of oral hypoglycemic drugs; Z95.828 Presence of other vascular implants and grafts; Z88.0 Allergy status to penicillin ==

== ENCOUNTER 2021-08-31 22:15 | Inpatient (IN) | payer OTHER ==
[~2021-08-31] VITALS: Ht 182.8 cm; Wt 154.2 kg
[2021-08-31 22:20] VITALS: BP 150/99
[2021-08-31 22:45] VITALS: BP 149/93
[2021-08-31 22:53] LABS: BASO # 0.1 10*3/uL (0.0-0.1); BASO % 0.8 % (0.0-1.0); EOS # 0.1 10*3/uL (0.0-0.4); EOS % 0.9 % (1.0-4.0); HEMATOCRIT 57.3 % (42.0-52.0); LYMPH # 2.8 10*3/uL (1.3-4.4); LYMPH % 18.5 % (27.0-41.0); MEAN CELL VOLUME 93.3 fl (80.0-94.0); MEAN CORPUSCULAR HGB 29.3 pg (27.0-31.0); MEAN CORPUSCULAR HGB CONC 31.4 g/dl (33.0-37.0); MEAN PLATELET VOLUME 11.9 fl (9.6-12.3); MONO # 0.9 10*3/uL (0.1-1.0); MONO % 5.8 % (3.0-9.0); NEUT # 11.2 10*3/uL (2.3-7.9); NEUT % 73.5 % (47.0-73.0); PLATELET COUNT AUTOMATED 169 10*3/uL (130-400); RED BLOOD COUNT 6.14 10*6/uL (4.50-5.90); RED CELL DISTRI WIDTH 13.3 % (0-14.5); WHITE BLOOD COUNT 15.3 10*3/uL (4.8-10.8)
[2021-08-31 23:05] LABS: ACT PARTIAL THROMBO TIME 30.6 SECONDS (20.0-32.1); INTERNATIONAL NORM RATIO 1.7 (2.0-3.5)
[2021-08-31 23:12] LABS: CREATININE 1.72 mg/dL (0.70-1.30); POTASSIUM 4.2 mmol/L (3.5-5.1); TOTAL PROTEIN 7.5 gm/dL (6.4-8.2)
[2021-09-01] VITALS (7 sets, daily range): BP systolic 117–126; BP diastolic 57–87
[2021-09-01 01:34] LABS: ARTERIAL BLOOD GAS PH 7.341 (7.35-7.45); ARTERIAL BLOOD GAS PO2 100.4 (80-90)
[2021-09-01] MEDS ORDERED: VITAMIN D31250 MC1 PO (02:52)
[2021-09-01 04:29] LABS: BASO # 0.1 10*3/uL (0.0-0.1); BASO % 0.6 % (0.0-1.0); EOS % 0.1 % (1.0-4.0); HEMATOCRIT 54.4 % (42.0-52.0); LYMPH # 2.1 10*3/uL (1.3-4.4); MEAN CORPUSCULAR HGB 29.7 pg (27.0-31.0); MEAN CORPUSCULAR HGB CONC 33.3 g/dl (33.0-37.0); MEAN PLATELET VOLUME 11.7 fl (9.6-12.3); MONO # 1.1 10*3/uL (0.1-1.0); MONO % 7.9 % (3.0-9.0); NEUT # 10.7 10*3/uL (2.3-7.9); PLATELET COUNT AUTOMATED 160 10*3/uL (130-400); RED CELL DISTRI WIDTH 13.2 % (0-14.5); WHITE BLOOD COUNT 14.1 10*3/uL (4.8-10.8)
[2021-09-01 04:42] LABS: MEAN CELL VOLUME 89.2 fl (80.0-94.0)
[2021-09-01 04:45] LABS: CREATININE 1.64 mg/dL (0.70-1.30)
[2021-09-01 04:50] LABS: FREE T4 1.26 ng/dl (0.76-1.46)
[2021-09-01 04:56] LABS: THYROID STIM HORMONE (HS) 3.19 uIU/ml (0.358-4.75)
[2021-09-02] VITALS: BP 148/88
[2021-09-02 05:49] LABS: CREATININE 1.76 mg/dL (0.70-1.30); POTASSIUM 4.5 mmol/L (3.5-5.1); TOTAL PROTEIN 7.4 gm/dL (6.4-8.2)
[2021-09-02 06:25] LABS: BASO % 0.2 % (0.0-1.0); HEMATOCRIT 51.8 % (42.0-52.0); LYMPH # 0.5 10*3/uL (1.3-4.4); LYMPH % 4.5 % (27.0-41.0); MEAN CELL VOLUME 90.4 fl (80.0-94.0); MEAN CORPUSCULAR HGB 29.7 pg (27.0-31.0); MEAN CORPUSCULAR HGB CONC 32.8 g/dl (33.0-37.0); MEAN PLATELET VOLUME 12.9 fl (9.6-12.3); MONO # 0.4 10*3/uL (0.1-1.0); MONO % 3.3 % (3.0-9.0); NEUT % 91.4 % (47.0-73.0); PLATELET COUNT AUTOMATED 155 10*3/uL (130-400); RED BLOOD COUNT 5.73 10*6/uL (4.50-5.90); RED CELL DISTRI WIDTH 13.2 % (0-14.5); WHITE BLOOD COUNT 12.1 10*3/uL (4.8-10.8)
[2021-09-02 08:00] VITALS: BP 144/91
[2021-09-02 12:00] VITALS: BP 142/69
[2021-09-02 16:00] VITALS: BP 111/88
[2021-09-02 18:00] VITALS: BP 142/72
[2021-09-02 20:00] VITALS: BP 111/88
[2021-09-03] VITALS: BP 144/73
[2021-09-03 05:20] LABS: BILIRUBIN Negative (Negative); BLOOD Negative (Negative); CLARITY Cloudy (Clear); COLOR Yellow (Yellow); GLUCOSE 2+ (Negative); KETONE Negative (Negative); LEUKO ESTERASE Negative (Negative); NITRITE Negative (Negative); SPECIFIC GRAVITY >= 1.030 (1.001-1.030)
[2021-09-03 05:32] LABS: CREATININE 1.61 mg/dL (0.70-1.30); POTASSIUM 4.4 mmol/L (3.5-5.1)
[2021-09-03 05:35] LABS: BACTERIA 1+; HYALINE CAST 16-20
[2021-09-03 06:07] LABS: HEMATOCRIT 47.3 % (42.0-52.0); MEAN CELL VOLUME 88.7 fl (80.0-94.0); MEAN CORPUSCULAR HGB 29.1 pg (27.0-31.0); MEAN CORPUSCULAR HGB CONC 32.8 g/dl (33.0-37.0); MEAN PLATELET VOLUME 12.5 fl (9.6-12.3); PLATELET COUNT AUTOMATED 162 10*3/uL (130-400); RED BLOOD COUNT 5.33 10*6/uL (4.50-5.90); RED CELL DISTRI WIDTH 13.2 % (0-14.5); WHITE BLOOD COUNT 13.9 10*3/uL (4.8-10.8)
[2021-09-03 06:53] LABS: MANUAL DIFF REFLEX YES
[2021-09-03 06:59] LABS: PLATELET SUFFICIENCY NORMAL (NORMAL); TOTAL CELLS COUNTED 100 #CELLS
[2021-09-03 08:00] VITALS: BP 133/79
[2021-09-03] MEDS ORDERED: CEFTRIAXONE1 GM IJ (11:09)
[2021-09-03] MEDS ORDERED: NOVAPLUS AZITH500 MG IV (11:09)
== END 2021-09-03 12:07 | disposition short-term general hospital (02) | DRG 720 ==
LOC: ED 22:15 → 4E 09-01 02:16 → EDHOLD 09-01 02:16 → 4E 09-01 03:20
PROVIDERS: Emergency Medicine; Student in an Organized Health Care Education/Training Program; ADMIT Internal Medicine; ATTEND Internal Medicine
PROC: 5A09357 Assistance with Respiratory Ventilation, Less than 24 Consecutive Hours, Continuous Positive Airway Pressure (ICD-10-PCS; principal; 2021-09-01)
PROC: 5A09357 Assistance with Respiratory Ventilation, Less than 24 Consecutive Hours, Continuous Positive Airway Pressure (ICD-10-PCS; 2021-09-02)
DX: A41.9 Sepsis, unspecified organism (principal); I21.4 Non-ST elevation (NSTEMI) myocardial infarction; I50.33 Acute on chronic diastolic (congestive) heart failure; J44.1 Chronic obstructive pulmonary disease with (acute) exacerbation; N17.0 Acute kidney failure with tubular necrosis; E43 Unspecified severe protein-calorie malnutrition; E87.1 Hypo-osmolality and hyponatremia; J18.9 Pneumonia, unspecified organism; Z66 Do not resuscitate; E66.01 Morbid (severe) obesity due to excess calories; J96.21 Acute and chronic respiratory failure with hypoxia; R65.20 Severe sepsis without septic shock; E11.65 Type 2 diabetes mellitus with hyperglycemia; G47.33 Obstructive sleep apnea (adult) (pediatric); N40.0 Benign prostatic hyperplasia without lower urinary tract symptoms; D75.1 Secondary polycythemia; J44.0 Chronic obstructive pulmonary disease with (acute) lower respiratory infection; Z88.2 Allergy status to sulfonamides; I25.2 Old myocardial infarction; Z95.5 Presence of coronary angioplasty implant and graft; Z95.0 Presence of cardiac pacemaker; Z82.49 Family history of ischemic heart disease and other diseases of the circulatory system; Z83.3 Family history of diabetes mellitus; Z82.3 Family history of stroke; Z68.42 Body mass index [BMI] 45.0-49.9, adult; Z51.5 Encounter for palliative care